=== PATIENT | male | born 1955 | race Caucasian/White ===

== ENCOUNTER 2019-05-22 22:03 | Emergency (ER) | payer OTHER ==
[2019-05-22 22:12] VITALS: BP 182/99; PULSE 111; RESP 16; TEMP 98.1
[2019-05-22] MEDS ORDERED: LIDOCAINE 1% INJ 10MG/ML (20 ML MDV) SQ ONE (22:23)
[2019-05-22] MEDS ORDERED: ceFAZolin 1,000 MG VIAL (IM USE) IM STA (22:24)
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
[2019-05-22] MEDS ORDERED: HYDROcodone/APAP 7.5-325MG 1 EACH TAB PO ONE (22:52)
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
== END 2019-05-22 23:35 | disposition home or self-care (01) ==
LOC: EC 22:03
DX: S06.0X0A Concussion without loss of consciousness, initial encounter (principal); S02.32XA Fracture of orbital floor, left side, initial encounter for closed fracture; S01.21XA Laceration without foreign body of nose, initial encounter; S00.03XA Contusion of scalp, initial encounter; Y04.0XXA Assault by unarmed brawl or fight, initial encounter; Y92.009 Unspecified place in unspecified non-institutional (private) residence as the place of occurrence of the external cause
CPT/HCPCS: 70486; 70450; 99284; 12013; 96372; J0690; J2001